=== PATIENT | female | born 1945 | race Caucasian/White ===

== ENCOUNTER 2017-04-30 20:16 | Emergency (ER) | payer MEDICARE, SELFPAY ==
[~2017-04-30] VITALS: Ht 157.5 cm; Wt 63.5 kg
[~2017-04-30 20:16] MED LIST: ACET325 PO; ACET500 PO; AMLO10 PO; ASPI81CH PO; ATEN50 PO; Ativan0.5 MG PO; CALC.25 PO; CLON.1 PO; D3-20002000 UNIT PO; FAMO20 PO; GABA400; HYDR1TAB94 PO; LORA1 PO; METO25 PO; METO50 PO; Miralax17 GM PO; NICO21TP TOP; NITR.4SL SL; OXYC10ER PO; PREG25 PO; PREG50 PO; PROC10 PO; SODBIC650 PO; Sodium Bicarbo325 MG; TIZANIDINE HCL2 MG PO; ZOLP5 PO; [UNRECOGNIZED DRUG - REMARK]
[2017-04-30 21:03] LABS: BASOPHILS ABSOLUTE AUTO 0.01 K/mm3 (0.00-0.23); BASOPHILS PERCENT AUTO 0 % (0-2); EOSINOPHILS ABSOLUTE AUTO 0.14 K/mm3 (0.00-0.68); EOSINOPHILS PERCENT AUTO 2 % (0-6); Hematocrit 41.9 % (33.0-51.0); Hemoglobin 13.7 g/dL (11.5-16.0); IMMATURE GRAN ABSOLUTE AUTO 0.02 K/mm3 (0.00-0.10); IMMATURE GRAN PERCENT AUTO 0 % (0-1); LYMPHOCYTES ABSOLUTE AUTO 1.05 K/mm3 (0.84-5.20); LYMPHOCYTES PERCENT AUTO 15 % (21-46); MONOCYTES ABSOLUTE AUTO 0.44 K/mm3 (0.16-1.47); MONOCYTES PERCENT AUTO 6 % (4-13); Mean Corpuscular HGB 28.9 pg (26.0-34.0); Mean Corpuscular HGB Conc 32.7 g/dL (31.5-36.5); Mean Corpuscular Volume 88 fL (80-100); Mean Platelet Volume 9.9 fL (9.1-12.4); NEUTROPHILS ABSOLUTE AUTO 5.55 K/mm3 (1.96-9.15); NEUTROPHILS PERCENT AUTO 77 % (41-73); Platelet Count 180 K/mm3 (150-400); RDW Coefficient Variation 14.2 % (11.7-14.2); Red Blood Cell Count 4.74 M/mm3 (3.80-5.20); White Blood Cell Count 7.21 K/mm3 (4.00-11.30)
[2017-04-30 21:18] LABS: Albumin, Blood 3.4 g/dL (3.4-5.0); Albumin/Globulin Ratio 0.7 (0.8-1.8); Bilirubin, Total 0.4 mg/dL (0.1-1.0); Bun/Creatinine Ratio 15.5 (12.0-20.0); Calcium, Blood 9.2 mg/dL (8.5-10.1); Creatinine, Blood 1.81 mg/dL (0.40-1.00); Globulin, Blood 4.9 g/dL (2.2-4.0); Potassium, Blood 4.2 mmol/L (3.5-5.5); Total Protein, Blood 8.3 g/dL (6.4-8.2)
[2017-05-01 00:27] LABS: Source, Urine Urostomy Bag
[2017-05-01 00:30] LABS: Bilirubin, Urine Neg (Neg); Blood, Urine 3+ (Neg); Glucose Qualitative, Urine Neg (Neg); Ketones, Urine Neg (Neg); Leukocyte Esterase, Urine 3+ (Neg); Nitrite, Urine Pos (Neg); Protein, Urine 2+ (Neg); Specific Gravity, Urine 1.015 (1.003-1.022); Urobilinogen, Urine NORM (Normal)
[2017-05-01 00:36] LABS: Appearance, Urine Hazy (Clear); Color, Urine Yellow (P-Yellow)
[2017-05-01 00:37] LABS: Bacteria Many /hpf; Red Blood Cells, Urine 0-2 /hpf (0-2); Squamous Epithelial Cells Rare /hpf (Few)
== END 2017-05-01 03:51 | disposition short-term general hospital (02) ==
LOC: ER 20:16
PROVIDERS: Emergency Medicine
DX: N13.30 Unspecified hydronephrosis (principal); Z85.41 Personal history of malignant neoplasm of cervix uteri; Z88.8 Allergy status to other drugs, medicaments and biological substances; Z79.899 Other long term (current) drug therapy; Z79.82 Long term (current) use of aspirin; I10 Essential (primary) hypertension; F17.200 Nicotine dependence, unspecified, uncomplicated
CPT/HCPCS: 36415; 71046; 74150; 80053; 81001; 83605; 83690; 85025; 87040; 87077; 87086; 87186; 96374; 96375; 96376; 99285; J0696; J1170; J2405; J7030

== ENCOUNTER → 2017-05-10 | Outpatient (CLI) | payer MEDICARE ==
[2017-05-10 20:01] LABS: BASOPHILS ABSOLUTE AUTO 0.03 K/mm3 (0.00-0.23); BASOPHILS PERCENT AUTO 0 % (0-2); EOSINOPHILS ABSOLUTE AUTO 0.08 K/mm3 (0.00-0.68); EOSINOPHILS PERCENT AUTO 1 % (0-6); Hematocrit 44.2 % (33.0-51.0); Hemoglobin 13.6 g/dL (11.5-16.0); IMMATURE GRAN ABSOLUTE AUTO 0.03 K/mm3 (0.00-0.10); IMMATURE GRAN PERCENT AUTO 0 % (0-1); LYMPHOCYTES ABSOLUTE AUTO 0.82 K/mm3 (0.84-5.20); LYMPHOCYTES PERCENT AUTO 11 % (21-46); MONOCYTES ABSOLUTE AUTO 0.41 K/mm3 (0.16-1.47); MONOCYTES PERCENT AUTO 6 % (4-13); Mean Corpuscular HGB 27.8 pg (26.0-34.0); Mean Corpuscular HGB Conc 30.8 g/dL (31.5-36.5); Mean Corpuscular Volume 90 fL (80-100); Mean Platelet Volume 10.4 fL (9.1-12.4); NEUTROPHILS ABSOLUTE AUTO 5.81 K/mm3 (1.96-9.15); NEUTROPHILS PERCENT AUTO 81 % (41-73); Platelet Count 185 K/mm3 (150-400); RDW Coefficient Variation 14.1 % (11.7-14.2); RDW Standard Deviation 46.4 fL (35.1-46.3); White Blood Cell Count 7.18 K/mm3 (4.00-11.30)
[2017-05-10 20:35] LABS: Alanine Aminotransfer (ALT/SGP 17 U/L (12-78); Albumin, Blood 3.5 g/dL (3.4-5.0); Albumin/Globulin Ratio 0.7 (0.8-1.8); Alk Phos 90 U/L (50-136); Anion Gap 10 mmol/L (6-16); Aspartate Aminotrans (AST/SGOT 14 U/L (12-37); Bilirubin, Total 0.9 mg/dL (0.1-1.0); Blood Urea Nitrogen 29 mg/dL (8-24); Bun/Creatinine Ratio 13.1 (12.0-20.0); CO2, Blood 25 mmol/L (21-32); Calcium, Blood 9.3 mg/dL (8.5-10.1); Chloride, Blood 102 mmol/L (98-108); Creatinine, Blood 2.21 mg/dL (0.40-1.00); Globulin, Blood 4.7 g/dL (2.2-4.0); Glomerular Filtration Rate 23 (60-); Glucose, Blood 109 mg/dL (70-99); Phosphorus, Blood 3.4 mg/dL (2.5-4.9); Potassium, Blood 4.5 mmol/L (3.5-5.5); Sodium, Blood 137 mmol/L (136-145); Total Protein, Blood 8.2 g/dL (6.4-8.2)
== END ==
LOC: LAB 15:03
PROVIDERS: Family Medicine
DX: N18.3 Chronic kidney disease, stage 3 (moderate) (principal); D63.1 Anemia in chronic kidney disease
CPT/HCPCS: 36415; 80053; 84100; 85025

== ENCOUNTER → 2017-06-01 | Outpatient (CLI) | payer MEDICARE, SELFPAY ==
[2017-06-01 15:07] LABS: Albumin, Blood 3.3 g/dL (3.4-5.0); Anion Gap 10 mmol/L (6-16); Blood Urea Nitrogen 20 mg/dL (8-24); Bun/Creatinine Ratio 11.2 (12.0-20.0); CO2, Blood 25 mmol/L (21-32); Calcium, Blood 8.9 mg/dL (8.5-10.1); Chloride, Blood 100 mmol/L (98-108); Creatinine, Blood 1.79 mg/dL (0.40-1.00); Glomerular Filtration Rate 30 (60-); Glucose, Blood 112 mg/dL (70-99); Phosphorus, Blood 3.6 mg/dL (2.5-4.9); Potassium, Blood 4.1 mmol/L (3.5-5.5); Sodium, Blood 135 mmol/L (136-145); Uric Acid, Blood 6.3 mg/dL (2.6-6.0)
== END | disposition home or self-care (01) ==
LOC: LAB HH 11:45
PROVIDERS: Family Medicine
DX: E11.22 Type 2 diabetes mellitus with diabetic chronic kidney disease (principal); N18.3 Chronic kidney disease, stage 3 (moderate); D63.1 Anemia in chronic kidney disease
CPT/HCPCS: 80069; 83036; 84550; 85018

== ENCOUNTER → 2017-09-27 | Outpatient (CLI) | payer MEDICARE, SELFPAY ==
[2017-09-27 23:55] LABS: Stool Occult Bld Immuno 1 Negative (NEGATIVE)
== END ==
LOC: LAB SHORT 13:50 → OLS 13:50 → LAB FUT 09-16 16:10
PROVIDERS: Family Medicine
DX: E11.22 Type 2 diabetes mellitus with diabetic chronic kidney disease (principal); I12.9 Hypertensive chronic kidney disease with stage 1 through stage 4 chronic kidney disease, or unspecified chronic kidney disease; N18.9 Chronic kidney disease, unspecified; R63.4 Abnormal weight loss
CPT/HCPCS: 82274

== ENCOUNTER → 2017-10-24 | Outpatient (CLI) | payer MEDICARE, SELFPAY | END | disposition home or self-care (01) | LOC: OLS 16:21 → LAB SHORT 16:21 | PROVIDERS: Nurse Practitioner Women's Health | DX: Z12.4 Encounter for screening for malignant neoplasm of cervix (principal); Z85.41 Personal history of malignant neoplasm of cervix uteri | CPT/HCPCS: 87624; G0123 ==

== ENCOUNTER → 2019-01-12 | Outpatient (CLI) | payer MEDICARE ==
[2019-01-15 13:14] LABS: U Amphetamine Screen Not Detected; U Barbituate Screen Not Detected; U Benzodiazapine Screen Not Detected; U Buprenorphine Screen Not Detected; U Cannabinoids Screen DETECTED; U Cocaine Screen Not Detected; U Methadone Screen Not Detected; U Methamphetamine Screen Not Detected; U Opiates Screen Not Detected; U Oxycodone Screen DETECTED; U Phencyclidine Screen Not Detected; U Propoxyphene Screen Not Detected
== END | disposition home or self-care (01) ==
LOC: LAB 16:15 → LAB SHORT 16:15
PROVIDERS: Family Medicine
DX: Z51.81 Encounter for therapeutic drug level monitoring (principal); Z79.891 Long term (current) use of opiate analgesic

== ENCOUNTER → 2019-04-24 | Outpatient (CLI) | payer MEDICARE ==
[2019-05-01 08:08] LABS: DOPAMINE, URINE 71 ug/L (Undefined); METANEPHRINE, UR 120 ug/L (Undefined)
== END | disposition home or self-care (01) ==
LOC: LAB SHORT 12:02 → LAB 12:02 → LAB FUT 01-13 13:15
PROVIDERS: Family Medicine
DX: R23.2 Flushing (principal)
CPT/HCPCS: 81050; 82384; 83835

== ENCOUNTER → 2019-05-01 | Outpatient (CLI) | payer MEDICARE ==
[2019-05-01 18:31] LABS: U Amphetamine Screen Not Detected; U Barbituate Screen Not Detected; U Benzodiazapine Screen Not Detected; U Buprenorphine Screen Not Detected; U Cannabinoids Screen Not Detected; U Cocaine Screen Not Detected; U Methadone Screen Not Detected; U Methamphetamine Screen Not Detected; U Opiates Screen Not Detected; U Oxycodone Screen DETECTED; U Phencyclidine Screen Not Detected; U Propoxyphene Screen Not Detected
== END | disposition home or self-care (01) ==
LOC: LAB SHORT 14:40 → LAB 14:40
PROVIDERS: Family Medicine
DX: Z51.81 Encounter for therapeutic drug level monitoring (principal); Z79.891 Long term (current) use of opiate analgesic

== ENCOUNTER → 2020-03-14 | Outpatient (CLI) | payer MEDICARE ==
[2020-03-14 18:20] LABS: U Opiates Screen DETECTED; U Oxycodone Screen DETECTED
[2020-03-14 18:21] LABS: U Amphetamine Screen Not Detected; U Barbituate Screen Not Detected; U Benzodiazapine Screen Not Detected; U Buprenorphine Screen Not Detected; U Cannabinoids Screen Not Detected; U Cocaine Screen Not Detected; U Methadone Screen Not Detected; U Methamphetamine Screen Not Detected; U Phencyclidine Screen Not Detected; U Propoxyphene Screen Not Detected
== END ==
LOC: LAB 15:42 → LAB SHORT 15:42
PROVIDERS: Family Medicine
DX: Z51.81 Encounter for therapeutic drug level monitoring (principal); Z79.899 Other long term (current) drug therapy

== ENCOUNTER 2020-07-04 09:14 | Emergency (ER) | payer MEDICARE ==
[~2020-07-04] VITALS: Ht 152.4 cm; Wt 63.5 kg
[2020-07-04] MEDS ORDERED: OMEP20ER PO (09:53)
[2020-07-04] MEDS ORDERED: Ventolin/Prove6.7 GM INH (09:53)
[2020-07-04] MEDS ORDERED: ESTRADIOL42.5 GM VAG (09:53)
[2020-07-04] MEDS ORDERED: LOSARTAN POTASS25 M2 PO (09:54)
[2020-07-04] MEDS ORDERED: GABA400 PO (09:55)
[2020-07-04] MEDS ORDERED: DICLOFENAC SOD100 G1 TOP (09:55)
[2020-07-04 10:41] LABS: BASOPHILS ABSOLUTE AUTO 0.04 K/mm3 (0.00-0.23); BASOPHILS PERCENT AUTO 1 % (0-2); EOSINOPHILS ABSOLUTE AUTO 0.37 K/mm3 (0.00-0.68); EOSINOPHILS PERCENT AUTO 5 % (0-6); Hematocrit 43.8 % (33.0-51.0); Hemoglobin 13.8 g/dL (11.5-16.0); IMMATURE GRAN ABSOLUTE AUTO 0.06 K/mm3 (0.00-0.10); IMMATURE GRAN PERCENT AUTO 1 % (0-1); LYMPHOCYTES PERCENT AUTO 11 % (21-46); MONOCYTES ABSOLUTE AUTO 0.62 K/mm3 (0.16-1.47); MONOCYTES PERCENT AUTO 8 % (4-13); Mean Corpuscular HGB 28.5 pg (26.0-34.0); Mean Corpuscular HGB Conc 31.5 g/dL (31.5-36.5); Mean Corpuscular Volume 91 fL (80-100); Mean Platelet Volume 10.1 fL (9.1-12.4); NEUTROPHILS ABSOLUTE AUTO 6.26 K/mm3 (1.96-9.15); NEUTROPHILS PERCENT AUTO 76 % (41-73); Platelet Count 185 K/mm3 (150-400); RDW Coefficient Variation 14.6 % (11.7-14.2); RDW Standard Deviation 48.6 fL (35.1-46.3); Red Blood Cell Count 4.84 M/mm3 (3.80-5.20); White Blood Cell Count 8.25 K/mm3 (4.00-11.30)
[2020-07-04 10:55] LABS: Alanine Aminotransfer (ALT/SGP 16 U/L (12-78); Albumin/Globulin Ratio 0.7 (0.8-1.8); Alk Phos 92 U/L (50-136); Anion Gap 9 mmol/L (6-16); Aspartate Aminotrans (AST/SGOT 14 U/L (12-37); Bilirubin, Total 0.9 mg/dL (0.1-1.0); Blood Urea Nitrogen 24 mg/dL (8-24); Bun/Creatinine Ratio 14.8 (12.0-20.0); CO2, Blood 21 mmol/L (21-32); Calcium, Blood 8.9 mg/dL (8.5-10.1); Chloride, Blood 110 mmol/L (98-108); Creatinine, Blood 1.62 mg/dL (0.40-1.00); Globulin, Blood 4.4 g/dL (2.2-4.0); Glomerular Filtration Rate 33 (60-); Glucose, Blood 136 mg/dL (70-99); Potassium, Blood 4.4 mmol/L (3.5-5.5); Sodium, Blood 140 mmol/L (136-145); Total Protein, Blood 7.4 g/dL (6.4-8.2); Troponin I <0.015 ng/mL (0.000-0.040)
[2020-07-04] MEDS ORDERED: LEVFLO500 PO (12:04)
[2020-08-12] MEDS ORDERED: OXYC10TA19 PO (12:39)
[2020-08-12] MEDS ORDERED: BENZ100A PO (12:39)
[2020-08-12] MEDS ORDERED: SENN187 PO (12:41)
[2020-08-12] MEDS ORDERED: PRED20 PO (12:41)
[2020-08-12] MEDS ORDERED: VITAMIN D5000 UNIT PO (12:42)
== END 2020-07-04 12:10 | disposition home or self-care (01) ==
LOC: ER 09:14
PROVIDERS: Emergency Medicine
DX: J18.9 Pneumonia, unspecified organism (principal); K21.9 Gastro-esophageal reflux disease without esophagitis; I10 Essential (primary) hypertension; F17.200 Nicotine dependence, unspecified, uncomplicated; Z85.41 Personal history of malignant neoplasm of cervix uteri; Z85.118 Personal history of other malignant neoplasm of bronchus and lung; Z79.899 Other long term (current) drug therapy; Z91.09 Other allergy status, other than to drugs and biological substances
CPT/HCPCS: 36415; 71045; 71250; 80053; 83880; 84484; 85025; 93005; 93010; 99284-25; A9270

== ENCOUNTER 2020-09-08 19:51 | Inpatient (IN) | payer MEDICARE ==
[~2020-09-08] VITALS: Ht 152.4 cm; Wt 62.1 kg
[~2020-09-08 19:51] MED LIST changes: +BENZ100A PO; +DICLOFENAC SOD100 G1 TOP; +ESTRADIOL42.5 GM VAG; +GABA400 PO; +LEVFLO500 PO; +LOSARTAN POTASS25 M2 PO; +OMEP20ER PO; +OXYC10TA19 PO; +PRED20 PO; +SENN187 PO; +VITAMIN D5000 UNIT PO; +Ventolin/Prove6.7 GM INH
[2020-09-08 21:22] LABS: BASOPHILS ABSOLUTE AUTO 0.02 K/mm3 (0.00-0.23); BASOPHILS PERCENT AUTO 1 % (0-2); EOSINOPHILS ABSOLUTE AUTO 0.03 K/mm3 (0.00-0.68); EOSINOPHILS PERCENT AUTO 1 % (0-6); Hematocrit 35.9 % (33.0-51.0); Hemoglobin 11.1 g/dL (11.5-16.0); IMMATURE GRAN ABSOLUTE AUTO 0.05 K/mm3 (0.00-0.10); IMMATURE GRAN PERCENT AUTO 1 % (0-1); LYMPHOCYTES ABSOLUTE AUTO 0.54 K/mm3 (0.84-5.20); LYMPHOCYTES PERCENT AUTO 13 % (21-46); MONOCYTES ABSOLUTE AUTO 0.62 K/mm3 (0.16-1.47); MONOCYTES PERCENT AUTO 15 % (4-13); Mean Corpuscular HGB 27.1 pg (26.0-34.0); Mean Corpuscular HGB Conc 30.9 g/dL (31.5-36.5); Mean Corpuscular Volume 88 fL (80-100); Mean Platelet Volume 10.4 fL (9.1-12.4); NEUTROPHILS PERCENT AUTO 70 % (41-73); Platelet Count 162 K/mm3 (150-400); RDW Coefficient Variation 15.2 % (11.7-14.2); RDW Standard Deviation 48.7 fL (35.1-46.3); White Blood Cell Count 4.16 K/mm3 (4.00-11.30)
[2020-09-08 21:48] LABS: Alanine Aminotransfer (ALT/SGP 28 U/L (12-78); Albumin, Blood 2.5 g/dL (3.4-5.0); Albumin/Globulin Ratio 0.5 (0.8-1.8); Alk Phos 82 U/L (50-136); Anion Gap 7 mmol/L (6-16); Aspartate Aminotrans (AST/SGOT 23 U/L (12-37); Bilirubin, Total 0.5 mg/dL (0.1-1.0); Blood Urea Nitrogen 26 mg/dL (8-24); Bun/Creatinine Ratio 12.4 (12.0-20.0); CO2, Blood 26 mmol/L (21-32); Chloride, Blood 103 mmol/L (98-108); Creatinine, Blood 2.09 mg/dL (0.40-1.00); Globulin, Blood 5.1 g/dL (2.2-4.0); Glomerular Filtration Rate 25 (60-); Glucose, Blood 112 mg/dL (70-99); Potassium, Blood 4.6 mmol/L (3.5-5.5); Sodium, Blood 136 mmol/L (136-145); Total Protein, Blood 7.6 g/dL (6.4-8.2); Troponin I <0.015 ng/mL (0.000-0.040)
--- NOTE | 2020-09-09 00:58 | NUR ---
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 PT uses 3 l nc baseline & has CXR at primary care. REportedly needed 5 l NC in ER. 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 Await admission DR Self admitting. Full code status per medical record.
[2020-09-09 02:18] LABS: Source, Urine Clean Catch
[2020-09-09 02:20] LABS: Bilirubin, Urine Neg (Neg); Blood, Urine Neg (Neg); Glucose Qualitative, Urine Neg (Neg); Ketones, Urine 1+ (Neg); Leukocyte Esterase, Urine Neg (Neg); Nitrite, Urine Neg (Neg); Protein, Urine 2+ (Neg); Specific Gravity, Urine 1.015 (1.003-1.022); Urobilinogen, Urine NORM (Normal)
[2020-09-09 02:21] LABS: Appearance, Urine Clear (Clear); Color, Urine Yellow (P-Yellow)
[2020-09-09 02:26] LABS: Bacteria Few /hpf; Red Blood Cells, Urine 0-2 /hpf (0-2); Squamous Epithelial Cells Few /hpf (Few)
--- NOTE | 2020-09-09 03:27 | NUR ---
75 year old Female with recent 3 day hospital stay with thoracentesis for large pleural effusion x 2 per PT report started on chemo after thoracentesis 2 weeks ago. HAd cervical cancer with mets previously had chemo & radiation 2 years ago to treat. Alert, PT on 4 l oxygen for SOB, was hypoxic in ER. Has poor renal function after cancer damaged kidney, creatinine greater than 2. HAs VQ scan orderd. Called DR Lundberg about NPO status gen diet rx as tolerated. PT with recent 15 lb wt loss poor appetite. IV lasix 40 mg given. On tele monitor SR HR 90. Has had covid vaccine x 2 fully immunized. HAs good support of DTR & Son in law who live next door. MAVIS status purple band applied.
[2020-09-09 05:34] LABS: BASOPHILS ABSOLUTE AUTO 0.02 K/mm3 (0.00-0.23); BASOPHILS PERCENT AUTO 1 % (0-2); EOSINOPHILS ABSOLUTE AUTO 0.04 K/mm3 (0.00-0.68); EOSINOPHILS PERCENT AUTO 1 % (0-6); Hematocrit 31.7 % (33.0-51.0); IMMATURE GRAN ABSOLUTE AUTO 0.03 K/mm3 (0.00-0.10); IMMATURE GRAN PERCENT AUTO 1 % (0-1); LYMPHOCYTES ABSOLUTE AUTO 0.71 K/mm3 (0.84-5.20); LYMPHOCYTES PERCENT AUTO 17 % (21-46); MONOCYTES ABSOLUTE AUTO 0.68 K/mm3 (0.16-1.47); MONOCYTES PERCENT AUTO 17 % (4-13); Mean Corpuscular HGB 27.5 pg (26.0-34.0); Mean Corpuscular HGB Conc 31.5 g/dL (31.5-36.5); Mean Corpuscular Volume 87 fL (80-100); Mean Platelet Volume 10.5 fL (9.1-12.4); NEUTROPHILS PERCENT AUTO 64 % (41-73); Platelet Count 145 K/mm3 (150-400); RDW Coefficient Variation 15.2 % (11.7-14.2); RDW Standard Deviation 48.4 fL (35.1-46.3); Red Blood Cell Count 3.63 M/mm3 (3.80-5.20); White Blood Cell Count 4.08 K/mm3 (4.00-11.30)
[2020-09-09 05:57] LABS: Albumin, Blood 2.1 g/dL (3.4-5.0); Albumin/Globulin Ratio 0.5 (0.8-1.8); Bilirubin, Total 0.6 mg/dL (0.1-1.0); Bun/Creatinine Ratio 12.5 (12.0-20.0); Calcium, Blood 8.4 mg/dL (8.5-10.1); Creatinine, Blood 1.92 mg/dL (0.40-1.00); Globulin, Blood 4.5 g/dL (2.2-4.0); Potassium, Blood 4.2 mmol/L (3.5-5.5); Total Protein, Blood 6.6 g/dL (6.4-8.2)
--- NOTE | 2020-09-09 13:32 | NUR ---
LOVENOX FOR PE V.O. FROM DR. DAVIS FOR LOVENOX 1MG/KG SUBCUTANEOUS BID. EMAR UPDATED.
--- NOTE | 2020-09-09 13:56 | NUR ---
PARAMETERS FOR LOSARTAN V.O. FROM DR. DAVIS TO HOLD LOSARTAN IF SBP LESS THAN 105. EMAR UPDATED.
--- NOTE | 2020-09-09 16:46 | NUR ---
Shift Summary A/Ox4, pleasant and cooperative. Up independently. Sats 89% on 3L, increased to 4L and sating above 90%. Breathing E/U. Medicated for pain per EMAR with good effect. Lung perfusion scan completed. Patient reports last chemo 08/25/20. Denies nausea, vomiting, diarrhea. Updated daughter Paty @ [phone]. WCTM.
--- NOTE | 2020-09-09 18:25 | NUR ---
Spiritual care note: Pt and I have a good rapport from her previous hospitalization last month. She tells me she is releived now that she has begun recieving treatment for pulmunary emboli. She reports hope for more time and states "the chemo is working well." She feels well-loved and supported by her family and denied fears/concerns. She responded well to theraputic listening and encouragement. I will remain available.
[2020-09-10 05:11] LABS: BASOPHILS ABSOLUTE AUTO 0.02 K/mm3 (0.00-0.23); BASOPHILS PERCENT AUTO 1 % (0-2); EOSINOPHILS ABSOLUTE AUTO 0.05 K/mm3 (0.00-0.68); EOSINOPHILS PERCENT AUTO 1 % (0-6); Hematocrit 30.9 % (33.0-51.0); Hemoglobin 9.4 g/dL (11.5-16.0); IMMATURE GRAN ABSOLUTE AUTO 0.04 K/mm3 (0.00-0.10); IMMATURE GRAN PERCENT AUTO 1 % (0-1); LYMPHOCYTES ABSOLUTE AUTO 0.77 K/mm3 (0.84-5.20); LYMPHOCYTES PERCENT AUTO 22 % (21-46); MONOCYTES ABSOLUTE AUTO 0.67 K/mm3 (0.16-1.47); MONOCYTES PERCENT AUTO 19 % (4-13); Mean Corpuscular HGB 26.9 pg (26.0-34.0); Mean Corpuscular HGB Conc 30.4 g/dL (31.5-36.5); Mean Corpuscular Volume 89 fL (80-100); Mean Platelet Volume 10.6 fL (9.1-12.4); NEUTROPHILS ABSOLUTE AUTO 1.98 K/mm3 (1.96-9.15); NEUTROPHILS PERCENT AUTO 56 % (41-73); Platelet Count 154 K/mm3 (150-400); RDW Coefficient Variation 15.3 % (11.7-14.2); RDW Standard Deviation 48.9 fL (35.1-46.3); Red Blood Cell Count 3.49 M/mm3 (3.80-5.20); White Blood Cell Count 3.53 K/mm3 (4.00-11.30)
[2020-09-10 05:22] LABS: Albumin, Blood 1.9 g/dL (3.4-5.0); Albumin/Globulin Ratio 0.5 (0.8-1.8); Bilirubin, Total 0.3 mg/dL (0.1-1.0); Bun/Creatinine Ratio 13.7 (12.0-20.0); Calcium, Blood 8.2 mg/dL (8.5-10.1); Creatinine, Blood 1.82 mg/dL (0.40-1.00); Globulin, Blood 4.2 g/dL (2.2-4.0); Potassium, Blood 4.5 mmol/L (3.5-5.5); Total Protein, Blood 6.1 g/dL (6.4-8.2)
--- NOTE | 2020-09-10 06:08 | NUR ---
pleasant calm 75 year old female admitted with dyspnea & hypoxia despite 3 l nc use had VQ scan while showed PEs. PT aware. She is recieving anticoagulant lovenox. Metastatic cervical cancer was belived to be in remission after radiation & chemo when she began developing pleural effusions which were malignant. She was restarted on chemo 2 weeks prior to admission with DR Lakhani & she has had greater than 10 pound wt loss and nausea. requires 4 l nc to keep sats greater than 90%. Appetite poor. Reported she had been constipated but had 4 bowel movements las 24 hours. Supplements or alternatives offered. Up indep in room. PT reports good Family support. DNR status.
--- NOTE | 2020-09-10 14:52 | NUR ---
MAX GUTIERREZA2 STUDENT
--- NOTE | 2020-09-11 04:59 | NUR ---
PT with metastatic cancer of cervix & pleursl effusions & dx of PEs started on eliqius to treat PE's .She is alert & pleasant. Requires 4 l NC oxygen to keep sats greater than 90%. She has insommnia & melatonin not very helpful to relieve. Trazodone 50 mg also not very helpful. Support offered for metastatic cervical cancer.
[2020-09-11 05:23] LABS: BASOPHILS ABSOLUTE AUTO 0.02 K/mm3 (0.00-0.23); BASOPHILS PERCENT AUTO 1 % (0-2); EOSINOPHILS ABSOLUTE AUTO 0.04 K/mm3 (0.00-0.68); EOSINOPHILS PERCENT AUTO 1 % (0-6); Hematocrit 34.3 % (33.0-51.0); Hemoglobin 10.4 g/dL (11.5-16.0); IMMATURE GRAN ABSOLUTE AUTO 0.05 K/mm3 (0.00-0.10); IMMATURE GRAN PERCENT AUTO 1 % (0-1); LYMPHOCYTES ABSOLUTE AUTO 0.83 K/mm3 (0.84-5.20); LYMPHOCYTES PERCENT AUTO 24 % (21-46); MONOCYTES ABSOLUTE AUTO 0.67 K/mm3 (0.16-1.47); MONOCYTES PERCENT AUTO 19 % (4-13); Mean Corpuscular HGB 27.4 pg (26.0-34.0); Mean Corpuscular HGB Conc 30.3 g/dL (31.5-36.5); Mean Corpuscular Volume 90 fL (80-100); Mean Platelet Volume 10.6 fL (9.1-12.4); NEUTROPHILS PERCENT AUTO 54 % (41-73); Platelet Count 156 K/mm3 (150-400); RDW Coefficient Variation 15.2 % (11.7-14.2); RDW Standard Deviation 49.7 fL (35.1-46.3); White Blood Cell Count 3.51 K/mm3 (4.00-11.30)
[2020-09-11 05:49] LABS: Albumin, Blood 2.1 g/dL (3.4-5.0); Albumin/Globulin Ratio 0.5 (0.8-1.8); Bilirubin, Total 0.7 mg/dL (0.1-1.0); Bun/Creatinine Ratio 11.8 (12.0-20.0); Calcium, Blood 8.6 mg/dL (8.5-10.1); Creatinine, Blood 2.29 mg/dL (0.40-1.00); Globulin, Blood 4.6 g/dL (2.2-4.0); Magnesium, Blood 1.6 mg/dL (1.6-2.4); Percent Saturation 18.3 % (15.0-50.0); Potassium, Blood 3.9 mmol/L (3.5-5.5); Total Protein, Blood 6.7 g/dL (6.4-8.2)
--- NOTE | 2020-09-11 17:57 | NUR ---
SHIFT SUMMARY NO ACUTE CHANGES NOTED TO PT THIS SHIFT. PT A&OX4, ABLE TO MAKE NEEDS KNOWN. PLEASANT AND COOPERATIVE TO CARE. INDEPENDENT IN THE ROOM. CALLS APPROPRIATELY FOR ASSISTANCE. NO C/O PAIN OR ANY DISCOMFORT THIS SHIFT. PT DENIES CP OR N&V. PT REPORTS THAT SHE CONTINUES TO HAVE SOB WITH EXERTION, PT ON 4LPM O2 VIA NC, SATS >92%. PT EATING DINNER AT THIS TIME. BED AT LOWEST POSITION. CALL LIGHT WITHIN REACH.
[2020-09-12 05:03] LABS: BASOPHILS ABSOLUTE AUTO 0.03 K/mm3 (0.00-0.23); BASOPHILS PERCENT AUTO 1 % (0-2); EOSINOPHILS ABSOLUTE AUTO 0.04 K/mm3 (0.00-0.68); EOSINOPHILS PERCENT AUTO 1 % (0-6); Hematocrit 31.1 % (33.0-51.0); Hemoglobin 9.5 g/dL (11.5-16.0); IMMATURE GRAN ABSOLUTE AUTO 0.05 K/mm3 (0.00-0.10); IMMATURE GRAN PERCENT AUTO 1 % (0-1); LYMPHOCYTES ABSOLUTE AUTO 0.88 K/mm3 (0.84-5.20); LYMPHOCYTES PERCENT AUTO 23 % (21-46); MONOCYTES PERCENT AUTO 16 % (4-13); Mean Corpuscular HGB 27.1 pg (26.0-34.0); Mean Corpuscular HGB Conc 30.5 g/dL (31.5-36.5); Mean Corpuscular Volume 89 fL (80-100); Mean Platelet Volume 10.5 fL (9.1-12.4); NEUTROPHILS ABSOLUTE AUTO 2.19 K/mm3 (1.96-9.15); NEUTROPHILS PERCENT AUTO 58 % (41-73); Platelet Count 149 K/mm3 (150-400); RDW Coefficient Variation 15.2 % (11.7-14.2); RDW Standard Deviation 48.8 fL (35.1-46.3); Red Blood Cell Count 3.51 M/mm3 (3.80-5.20); White Blood Cell Count 3.79 K/mm3 (4.00-11.30)
--- NOTE | 2020-09-12 05:26 | NUR ---
SPEECH/LANGUAGE THERAPIST SUMMARY NO ACUTE CHANGES THIS SHIFT. PT AAOX4 AND PLEASANT. INDEPENDENT IN ROOM. O2 SATS 92% ON 4L O2. PT STATES BREATHING IS "FINE LONG I HAVE MY OXYGEN ON". MEDICATED FOR CHRONIC PAIN PER EMAR WITH GOOD PAIN RELIEF. PT REQUESTED SENNA BECAUSE SHE "HADN'T HAD A BM TODAY AND I SKIPPED MY EARLIER DOSE TODAY BECAUSE I DIDN'T WANT TO GET DIARRHEA". RECIEVED ORDER FOR SENNA PER DR WALLACE, NO BM THUS FAR. VSS, WILL CONTINUE TO MONITOR.
[2020-09-12 05:29] LABS: Bun/Creatinine Ratio 14.4 (12.0-20.0); Calcium, Blood 8.4 mg/dL (8.5-10.1); Creatinine, Blood 2.16 mg/dL (0.40-1.00); Potassium, Blood 4.4 mmol/L (3.5-5.5)
--- NOTE | 2020-09-12 18:52 | NUR ---
SHIFT SUMMARY PT A&OX4, ABLE TO MAKE NEEDS KNOWN. PLEASANT AND COOPERATIVE TO CARE. PT MEDICATED FOR PAIN PER EMAR. NO C/O CP, SOB, OR N&V THIS SHIFT. PT REPORTED THAT LAST NIGHT SHE EXPERIENCED CHEST PAIN, DR. DAVIS NOTIFIED. TELE THIS SHIFT NSR 90's. PT CONTINUES ON O2 4LPM VIA NC, SATS >92%. PT CALM AND RESTED IN ROOM T/O SHIFT. BED AT LOWEST POSITION. CALL LIGHT WITHIN REACH.
[2020-09-13 04:49] LABS: Hematocrit 34.6 % (33.0-51.0); Hemoglobin 10.5 g/dL (11.5-16.0); Mean Corpuscular HGB 26.9 pg (26.0-34.0); Mean Corpuscular HGB Conc 30.3 g/dL (31.5-36.5); Mean Corpuscular Volume 89 fL (80-100); Mean Platelet Volume 10.8 fL (9.1-12.4); Platelet Count 159 K/mm3 (150-400); RDW Coefficient Variation 15.3 % (11.7-14.2); RDW Standard Deviation 49.1 fL (35.1-46.3); White Blood Cell Count 4.76 K/mm3 (4.00-11.30)
[2020-09-13 05:15] LABS: Bun/Creatinine Ratio 14.9 (12.0-20.0); Calcium, Blood 8.8 mg/dL (8.5-10.1); Creatinine, Blood 1.75 mg/dL (0.40-1.00); Potassium, Blood 4.6 mmol/L (3.5-5.5)
--- NOTE | 2020-09-13 06:38 | NUR ---
TRAFFIC LAW ATTORNEY SUMMARY NO ACUTE CHANGES THIS SHIFT. PT AAOX4 AND INDEPENDENT IN ROOM. MEDICATED FOR PAIN X1 AT BEDTIME. PT REPORTS THAT SHE GOT GOOD SLEEP TONIGHT FOR THE FIRST TIME IN A FEW DAYS. PT HAD CXR AT START OF SHIFT. VSS, WILL CONTINUE TO MONITOR.
--- NOTE | 2020-09-13 17:42 | NUR ---
SHIFT SUMMARY PT ALERT, PT INDEPENDENT IN THE ROOM. PT C/O BACK PAIN- MEDICATED PER EMAR. PT STATED SHE HAS A CHEMO ON TUESDAY. PT IS ON O2 4L; SATS ABOVE 90S. DENIES ANY DISTRESS. BED IS IN THE LOWEST POSITION AND CALL LIGHT WITHIN REACH
[2020-09-14 04:58] LABS: Hematocrit 30.1 % (33.0-51.0); Hemoglobin 9.3 g/dL (11.5-16.0); Mean Corpuscular HGB 27.4 pg (26.0-34.0); Mean Corpuscular HGB Conc 30.9 g/dL (31.5-36.5); Mean Corpuscular Volume 89 fL (80-100); Platelet Count 156 K/mm3 (150-400); RDW Coefficient Variation 15.2 % (11.7-14.2)
--- NOTE | 2020-09-14 05:08 | NUR ---
SHIFT SUMMARY NO ACUTE CHANGES TO REPORT THIS SHIFT. PT HAS RESTED MOST OF THE NIGHT, SHE IS INDEPENDENT TO THE BATHROOM. SHE REPORTS FREQUENT STOOLS THAT ARE NOT LOOSE. SHE REFUSED THE STOOL SOFTNERS THIS SHIFT. TELE IN PLACE, PT IS NSR. VITALS ARE STABLE. O2 IN PLACE 3 BASELINE OR 3.5 L WHEN PT BECOMES SOB WITH EXERTION. PLAN IS FOR POSSIBLE DC HOME TODAY. ASSESSMENT REMAINS UNCHANGED. BED IN LOWEST POSITION, CALL LIGHT WITHIN REACH.
[2020-09-14 05:36] LABS: Albumin, Blood 1.9 g/dL (3.4-5.0); Albumin/Globulin Ratio 0.5 (0.8-1.8); Bilirubin, Total 0.4 mg/dL (0.1-1.0); Bun/Creatinine Ratio 13.3 (12.0-20.0); Calcium, Blood 8.3 mg/dL (8.5-10.1); Creatinine, Blood 1.66 mg/dL (0.40-1.00); Globulin, Blood 4.2 g/dL (2.2-4.0); Potassium, Blood 4.6 mmol/L (3.5-5.5); Total Protein, Blood 6.1 g/dL (6.4-8.2)
--- NOTE | 2020-09-14 17:58 | NUR ---
SHIFT SUMMARY PT ALERT, PT STILL HAVING SOME PRODUCTIVE COUGH AND SOB ON EXERTION. PT MEDICATED FOR PAIN X1 AND MEDICATED FOR COUGH SCHEDULED. PT VERY EMOTIONAL AND CRYING, SHE STATED THAT HER HEALTH IS NOT GETTING ANY BETTER AND SEEMS LIKE ITS GETTING WORSE. ENCOURAGED THE PT TO EXPRESS FEELINGS. BED IS IN THE LOWEST POSITION AND CALL LIGHT WITHIN REACH
--- NOTE | 2020-09-15 04:25 | NUR ---
SHIFT SUMMARY PT HAS RESTED MOST OF THE NIGHT, NO ACUTE CHANGES. PT TEARFUL THIS SHIFT, WHEN ASKED WHY SHE STATES THAT SHE FELT OVERWHELMED. PT ANXIOUS ABOUT DISCHARGE, AND UNSURE IF SHE WILL BE ABLE TO CARE FOR HERSELF AT HOME. SHE STATES SHE HAD HOME HEALTH COME INTO HER HOME ONCE A WEEK PRIOR TO THIS HOSPITLIZATION, BUT STATES THAT SHE FEELS THAT WON'T BE ENOUGH AFTER DISCHARGE. SHE WOULD LIKE MORE CARE AT HOME IS THAT CAN BE ARRANGED. VITALS STABLE. ASSESSMENT OTHERWIST UNCHANGED. BED IN LOWEST POSITION, CALL LIGHT WITHIN REACH.
[2020-09-15 04:35] LABS: BASOPHILS ABSOLUTE AUTO 0.03 K/mm3 (0.00-0.23); BASOPHILS PERCENT AUTO 1 % (0-2); EOSINOPHILS ABSOLUTE AUTO 0.04 K/mm3 (0.00-0.68); EOSINOPHILS PERCENT AUTO 1 % (0-6); Hematocrit 31.2 % (33.0-51.0); Hemoglobin 9.4 g/dL (11.5-16.0); IMMATURE GRAN ABSOLUTE AUTO 0.07 K/mm3 (0.00-0.10); IMMATURE GRAN PERCENT AUTO 2 % (0-1); LYMPHOCYTES ABSOLUTE AUTO 0.94 K/mm3 (0.84-5.20); LYMPHOCYTES PERCENT AUTO 21 % (21-46); MONOCYTES ABSOLUTE AUTO 0.71 K/mm3 (0.16-1.47); MONOCYTES PERCENT AUTO 16 % (4-13); Mean Corpuscular HGB 26.7 pg (26.0-34.0); Mean Corpuscular HGB Conc 30.1 g/dL (31.5-36.5); Mean Corpuscular Volume 89 fL (80-100); Mean Platelet Volume 10.2 fL (9.1-12.4); NEUTROPHILS ABSOLUTE AUTO 2.73 K/mm3 (1.96-9.15); NEUTROPHILS PERCENT AUTO 60 % (41-73); Platelet Count 149 K/mm3 (150-400); RDW Coefficient Variation 15.5 % (11.7-14.2); RDW Standard Deviation 49.9 fL (35.1-46.3); Red Blood Cell Count 3.52 M/mm3 (3.80-5.20); White Blood Cell Count 4.52 K/mm3 (4.00-11.30)
[2020-09-15 04:56] LABS: Albumin, Blood 1.9 g/dL (3.4-5.0); Albumin/Globulin Ratio 0.4 (0.8-1.8); Bilirubin, Total 0.4 mg/dL (0.1-1.0); Bun/Creatinine Ratio 14.6 (12.0-20.0); Calcium, Blood 8.5 mg/dL (8.5-10.1); Creatinine, Blood 1.57 mg/dL (0.40-1.00); Globulin, Blood 4.4 g/dL (2.2-4.0); Potassium, Blood 4.5 mmol/L (3.5-5.5); Total Protein, Blood 6.3 g/dL (6.4-8.2)
--- NOTE | 2020-09-15 17:01 | NUR ---
SHIFT SUMMARY PT IS AOX4 AND PLEASANT. PT MEDICATED FOR PAIN X1 THIS SHIFT. PT DENIES N/V, SOB. PT REMAINS ON BASELINE 3 L 02. PT IS INDEPENDENT IN ROOM AND WORKED WITH PT/OT. PT'S APPETITE IS MODERATE THIS SHIFT. PLAN IS FOR DC TOMORROW. WALKER DELIVERED TO PT'S ROOM TODAY FOR HOME USE. NO PROCEDURES PERFORMED THIS SHIFT. PT DID NOT HAVE VISITORS THIS BLANQUITA. PT IS IN BED, CALL LIGHT IN REACH, LOW POSITION.
[2020-09-16 04:18] LABS: Hematocrit 31.4 % (33.0-51.0); Hemoglobin 9.4 g/dL (11.5-16.0); Mean Corpuscular HGB 26.9 pg (26.0-34.0); Mean Corpuscular HGB Conc 29.9 g/dL (31.5-36.5); Mean Corpuscular Volume 90 fL (80-100); Mean Platelet Volume 10.5 fL (9.1-12.4); Platelet Count 163 K/mm3 (150-400); RDW Coefficient Variation 15.7 % (11.7-14.2); RDW Standard Deviation 51.1 fL (35.1-46.3); Red Blood Cell Count 3.49 M/mm3 (3.80-5.20); White Blood Cell Count 5.15 K/mm3 (4.00-11.30)
[2020-09-16 04:41] LABS: Albumin/Globulin Ratio 0.4 (0.8-1.8); Bilirubin, Total 0.5 mg/dL (0.1-1.0); Bun/Creatinine Ratio 14.8 (12.0-20.0); Calcium, Blood 8.7 mg/dL (8.5-10.1); Creatinine, Blood 1.76 mg/dL (0.40-1.00); Globulin, Blood 4.5 g/dL (2.2-4.0); Potassium, Blood 4.6 mmol/L (3.5-5.5); Total Protein, Blood 6.5 g/dL (6.4-8.2)
--- NOTE | 2020-09-16 04:45 | NUR ---
SHIFT SUMMARY AOX4. VSS. SPO2 >90% ON 3L O2 (BASELINE). DENIES SOB. REPORTED GAS, BLOATING & NAUSEA. MEDICATED c ZOFRAN 1X & SIMETHICONE, PT STATED RELIEF & NO FURTHER DISCOMFORT REPORTED. SLEPT WELL T/O NIGHT. IND IN RM. PLAN TO POSSIBLY DC HOME TODAY. CALL LIGHT IN REACH & PT ABLE TO MAKE NEEDS KNOWN. WILL MONITOR.
[2020-09-16] MEDS ORDERED: ELIQUIS5 MG PO (10:54)
[2020-09-16] MEDS ORDERED: GUAI600T33 PO (10:54)
[2020-09-16] MEDS ORDERED: MIRT15 PO (10:54)
[2020-09-16] MEDS ORDERED: SIME80CH PO (10:55)
--- NOTE | 2020-09-16 12:25 | NUR ---
REVIEW D'C. AWARE HAS MEDS AT PHARMACY AND HAS HARD COPY FOR NARCS. REVIEW MEDS AND WHY TAKING. HAS FOLLOW UP APPOINTMENT WITH ONCOLOGIST TOMORROW AND FOLLOW UP WITH PCP ON 09/19. ANSWER ALL QUESTIONS. PATIENT VERBALIZES UNDERSTANDING OF D'C. WAITING FOR RIDE. WILL BRING DOWN IN W/C ON OXYGEN WITH BELONGINGS.
== END 2020-09-16 12:44 | disposition home health service (06) | DRG 175 ==
LOC: ER 19:51 → MEDS 19:52 → EDBEDREQ 23:56 → MEDS 09-09 01:07
PROVIDERS: Internal Medicine; Physician Assistant; ADMIT Internal Medicine
DX: I26.99 Other pulmonary embolism without acute cor pulmonale (principal); J96.21 Acute and chronic respiratory failure with hypoxia; I13.0 Hypertensive heart and chronic kidney disease with heart failure and stage 1 through stage 4 chronic kidney disease, or unspecified chronic kidney disease; I50.32 Chronic diastolic (congestive) heart failure; E46 Unspecified protein-calorie malnutrition; J91.0 Malignant pleural effusion; N18.4 Chronic kidney disease, stage 4 (severe); Z66 Do not resuscitate; D63.1 Anemia in chronic kidney disease; Z68.26 Body mass index [BMI] 26.0-26.9, adult; C53.9 Malignant neoplasm of cervix uteri, unspecified; J84.10 Pulmonary fibrosis, unspecified; J44.9 Chronic obstructive pulmonary disease, unspecified; K21.9 Gastro-esophageal reflux disease without esophagitis; M54.9 Dorsalgia, unspecified; G89.29 Other chronic pain; M81.0 Age-related osteoporosis without current pathological fracture; Z85.118 Personal history of other malignant neoplasm of bronchus and lung; Z99.81 Dependence on supplemental oxygen; Z98.51 Tubal ligation status; Z98.890 Other specified postprocedural states; Z87.891 Personal history of nicotine dependence
CPT/HCPCS: 36415; 71046; 78580; 80048; 80053; 81001; 82728; 83540; 83550; 83735; 83880; 84484; 85025; 85027; 85651; 93005; 93010; 93306; 93356; 94640; 94760; 96372; 96374; 96375; 97110; 97162; 97165; 97530; 99285-25; A9270; A9540; G0378; J1650; J1940; J2405; J7040

== ENCOUNTER 2020-10-02 08:15 | Inpatient (IN) | payer MEDICARE ==
[~2020-10-02] VITALS: Ht 152.4 cm; Wt 62.1 kg
[~2020-10-02 08:15] MED LIST changes: +ELIQUIS5 MG PO; +GUAI600T33 PO; +MIRT15 PO; +SIME80CH PO
[2020-10-02] MEDS ORDERED: ONDA8 PO (08:40)
[2020-10-02 08:57] LABS: BASOPHILS ABSOLUTE AUTO 0.01 K/mm3 (0.00-0.23); BASOPHILS PERCENT AUTO 0 % (0-2); EOSINOPHILS PERCENT AUTO 0 % (0-6); Hematocrit 35.9 % (33.0-51.0); Hemoglobin 10.7 g/dL (11.5-16.0); IMMATURE GRAN ABSOLUTE AUTO 0.05 K/mm3 (0.00-0.10); IMMATURE GRAN PERCENT AUTO 1 % (0-1); LYMPHOCYTES ABSOLUTE AUTO 0.58 K/mm3 (0.84-5.20); LYMPHOCYTES PERCENT AUTO 8 % (21-46); MONOCYTES ABSOLUTE AUTO 0.15 K/mm3 (0.16-1.47); MONOCYTES PERCENT AUTO 2 % (4-13); Mean Corpuscular HGB 27.3 pg (26.0-34.0); Mean Corpuscular HGB Conc 29.8 g/dL (31.5-36.5); Mean Corpuscular Volume 92 fL (80-100); Mean Platelet Volume 10.4 fL (9.1-12.4); NEUTROPHILS ABSOLUTE AUTO 6.49 K/mm3 (1.96-9.15); NEUTROPHILS PERCENT AUTO 89 % (41-73); Platelet Count 191 K/mm3 (150-400); RDW Coefficient Variation 17.2 % (11.7-14.2); RDW Standard Deviation 57.6 fL (35.1-46.3); Red Blood Cell Count 3.92 M/mm3 (3.80-5.20); White Blood Cell Count 7.28 K/mm3 (4.00-11.30)
[2020-10-02 09:22] LABS: Albumin, Blood 2.8 g/dL (3.4-5.0); Albumin/Globulin Ratio 0.6 (0.8-1.8); Bilirubin, Total 0.6 mg/dL (0.1-1.0); Bun/Creatinine Ratio 14.1 (12.0-20.0); Calcium, Blood 7.8 mg/dL (8.5-10.1); Creatinine, Blood 1.63 mg/dL (0.40-1.00); Globulin, Blood 4.7 g/dL (2.2-4.0); Potassium, Blood 4.4 mmol/L (3.5-5.5); Total Protein, Blood 7.5 g/dL (6.4-8.2)
[2020-10-02 09:27] LABS: Troponin I 0.803 ng/mL (0.000-0.040)
[2020-10-02] MEDS ORDERED: WIXELA 250-501 EAC1 INH (13:06)
[2020-10-02] MEDS ORDERED: BENZ100A PO (13:07)
[2020-10-02] MEDS ORDERED: Vitamin D2000 UNIT PO (13:08)
--- NOTE | 2020-10-02 15:00 | NUR ---
UPDATE; NOTIFIED DR. HARO IN DETERIORATION OF RESPIRATORY STATUS. VERBAL ORDER GIVEN TO START BIPAP. PALLATIVE CARE NOTIFIED FOR EVAL. RT TO ROOM, PLACED ON BIPAP. DAUGHTER TO ROOM. WORK OF BREATHING DECREASED AFTER SEVERAL MINUTES OF WEARING BIPAP. WILL CONTINUE TO MONITOR.
--- NOTE | 2020-10-02 16:26 | NUR ---
pt ready to dischareg review of advance directive POA and polst. pt needs new ID. Family is considering hospice care. pt lives in [place] and family is wanting to move her to [facility] to be with them. Will follow up with hospice services and assist with plan of care.
--- NOTE | 2020-10-02 16:42 | NUR ---
Called to see pt due to worsening dyspnea and nausea. Pt had chemo and symptomatic. on bipapa, having pressure in chest and nausea. pt has not been able to eat and is voiding little. Pt seeing doctor small and dr child for care. Daughter in [id number] that she may not be able to tolerate treatment and may need hospice. Pt very sick permission to bring family in. Consulst palced to doctor small will await pt trenind if she recovers and doctor small reccomendations.
--- NOTE | 2020-10-02 17:21 | NUR ---
SHIFT SUMMARY; ADMIT FROM ER DURING SHIFT. A/A/OX4. TRANSFERS FROM ER GURNEY TO BED WITHOUT DIFFICULTY. LS COARSE AND WHEEZE ON RIGHT. DIMINISHED ON LEFT. AFTER ARRIVAL BECAME SOB WITH WORK OF BREATHING INCREASED. NOTIFIED HOSPITALIST, SEE PREVIOUS NURSING NOTE. BIPAP STARTED BY RT AND REMAINED ON FOR REMAINDER OF SHIFT. PALLATIVE CARE IN TO EVALUATE PT AND SPEAK WITH FAMILY. REPOSITIONS SELF IN BED NEEDED. UP TO BEDSIDE COMMODE WITH ASSISTANCE. WILL CONTINUE TO MONITOR UNTIL REPORTED OFF TO LEXI QUEEN AT 1800.
--- NOTE | 2020-10-02 19:50 | NUR ---
REPORT GIVEN TO LEXI MARTIN.
--- NOTE | 2020-10-03 02:40 | NUR ---
THIS LN TOOK OVER CARE AT 1845 PATIENT IS ALERT AND ORIENTATED, ABLE TO MAKE NEEDS KNOWN, CALLS APPROPRIATELY. PATIENT IS ANXIOUS THIS EVENING, REPEPTITIVE CONCERNS, CURRENTLY ON BEDREST WITH HERNANDEZ CATHETER CARE, HERNANDEZ CARE PROVIDED, C/O OF FIRM ABDOMEN WITHOUT PAIN, C/O OF HEADACHE TYLENOL GIVEN WITH RELIEF, C/O OF NAUSEA WITHOUT EMESIS ZOFRAN GIVEN WITH RELIEF. WILL CONTINUE TO MONITOR THE PATIENT.
[2020-10-03 03:53] LABS: BASOPHILS PERCENT AUTO 0 % (0-2); EOSINOPHILS PERCENT AUTO 0 % (0-6); Hematocrit 32.8 % (33.0-51.0); IMMATURE GRAN ABSOLUTE AUTO 0.02 K/mm3 (0.00-0.10); IMMATURE GRAN PERCENT AUTO 0 % (0-1); LYMPHOCYTES ABSOLUTE AUTO 0.27 K/mm3 (0.84-5.20); LYMPHOCYTES PERCENT AUTO 5 % (21-46); MONOCYTES ABSOLUTE AUTO 0.11 K/mm3 (0.16-1.47); MONOCYTES PERCENT AUTO 2 % (4-13); Mean Corpuscular HGB 27.2 pg (26.0-34.0); Mean Corpuscular HGB Conc 30.5 g/dL (31.5-36.5); Mean Corpuscular Volume 89 fL (80-100); Mean Platelet Volume 10.6 fL (9.1-12.4); NEUTROPHILS ABSOLUTE AUTO 5.38 K/mm3 (1.96-9.15); NEUTROPHILS PERCENT AUTO 93 % (41-73); Platelet Count 154 K/mm3 (150-400); RDW Standard Deviation 55.4 fL (35.1-46.3); Red Blood Cell Count 3.68 M/mm3 (3.80-5.20); White Blood Cell Count 5.78 K/mm3 (4.00-11.30)
[2020-10-03 04:17] LABS: Albumin, Blood 2.8 g/dL (3.4-5.0); Albumin/Globulin Ratio 0.7 (0.8-1.8); Bilirubin, Total 0.5 mg/dL (0.1-1.0); Bun/Creatinine Ratio 16.7 (12.0-20.0); Calcium, Blood 7.9 mg/dL (8.5-10.1); Creatinine, Blood 2.16 mg/dL (0.40-1.00); Globulin, Blood 4.3 g/dL (2.2-4.0); Magnesium, Blood 2.2 mg/dL (1.6-2.4); Phosphorus, Blood 5.2 mg/dL (2.5-4.9); Potassium, Blood 4.5 mmol/L (3.5-5.5); Total Protein, Blood 7.1 g/dL (6.4-8.2)
--- NOTE | 2020-10-03 07:43 | NUR ---
Bedside report received from [facility]. Pt c/o damp linen underneath her mercado tubing. Verified balloon inflation and placement by cleaning tubing with alcohol, deflating balloon (10cc), and reinflating. Urine noted draining clear yellow into the tubing. Megha care was done, and linens changed. Pt has no other c.o discomfort at this time. No distress, no anxiety noted.
--- NOTE | 2020-10-03 10:49 | NUR ---
Pt states that she was told by Dr. Martinez that she only has about 6 months to live. Palliative care RN states that she has been told this in the past on other admissions as well. The pt denies pain, and does not appear to be anxious, agitated or tearful. States that she was hoping to see her great grandchildren born, had hoped that she would live at least 2 more years. STates her cancer diagnosis was 7-8 years ago.
--- NOTE | 2020-10-03 18:17 | NUR ---
couple of attemtps to see pt she was resting well. will continue to try to follow up. Goal is to get her home so she can interact with young grandchildren. Daughter are fatigued and stressed huey her comments of wanting to live longer than six months. Will try to help pt process her journey will get chaplian services.
--- NOTE | 2020-10-03 21:57 | NUR ---
PATIENT IS ALERT AND FORGETFUL AT TIMES, AWARE OF CURRENT PLAN OF CARE, EXPRESSES SHE IS HAVING A HARD TIME WITH THE END OF LIFE DIAGNOSIS OF SIX MONTHS, DAUGHTER IS AT BEDSIDE AND LATER IN EVENING GRANDDAUGHTERS CAME IN TO VISIT WITH HER. SHE IS NOT REMEMBERING MEDICATION TAKEN PREVIOUS IN THE DAY WITH NOTED REPETITIVE CONCERNS AND DISCUSSIONS. WILL CONTINUE TO MONITOR AND PROVIDE COMFORT CARE FOR PATIENT.
--- NOTE | 2020-10-04 06:13 | NUR ---
PATIENT ENJOYED HER TIME WITH HER FAMILY THIS EVENING AND TALKING TO FRIENDS ON THE PHONE, C/O DISCOMFORT IN THE LUQ WRAPPING PRESSURE AROUND LEFT FLANK. PATIENT ASKED TO SLEEP, WILL LET DAY RN KNOW PATIENT WILL GET HER PRILOSEC ONCE SHE AWAKES, ALONG FOR COMFORT AND REST.
--- NOTE | 2020-10-04 14:06 | NUR ---
theraputic talk with patient. She is angry and fearful. we discussed being at home she is hesitant but understandsneed to accept we reviewed where to put the hospital bed and strategies on how to get outside. She does not like her children being stressed. We reviewed acceptance of that she raised a good can careing family and she is just gonna have to take it....she had a good laugh. will follow up with family and will have chaplian see her. She is anxious to get home and feels she will settle better at home. Will updte hospice pt has an exptrodary history of personnal truma in her young life it may effect her dying process.
--- NOTE | 2020-10-04 14:13 | NUR ---
Family requested my presence in the room with them. They asked a few questions about pt's oxygen needs, and ongoing assessment of her vital signs. I explained that the pt care at this time is centered around her comfort. Explained that I did check her vital signs before administering her blood pressure medication this morning, but that continuous oximetry has been completed since the oxygen delivery is based on what the pt feels is most comfortable and desirable for her. Extensive conversation with Paty outside of the room privately at her request. She seemed to be very concerned about her mom's acceptance of the prognosis is less than 3 months to live, and if her mom was going to be fighting the family with her treatment. She also expressed stress from other family members asking if we were "just giving up" and not doing anything more for the pt. Explained that the goal of treatment has shifted at this time after the pt had talked with Dr. Martinez (Paty states that she was also in that conversation) and realized that her prognosis was poor. The goal of treatment at this time is the pt's comfort, not procedures, treatments and medications which would be futile in prolonging her life and would increase her discomfort and enjoyment of the little time the pt might have left. Paty expressed that she understood much better after our conversation and states appreciation. I encouraged Paty to have open, honest coversation with her mom and encourage other family members to do the same so that they could understand one another and make the most of their remaining time together.
--- NOTE | 2020-10-04 16:00 | NUR ---
Pt c/o the bed feeling uncomfortable, and having pain in her ribs. Given pain medication by mouth, and assisted to chair to put egg crate mattress over the bed for comfort. She requested a sponge bath, which she was able to do herself with minimal assistance, including denture care and back rub. Bed linens changed. Pt states she wants to stay in the chair for now. Warm blanket to her shoulders and back. Call light within reach.
--- NOTE | 2020-10-04 18:14 | NUR ---
Good relief of pain with 5 mg roxinol. The pt has been able to self transfer from chair to bed. Appetite fair, and no c/o anxiety or difficulty breathing.
--- NOTE | 2020-10-05 11:00 | NUR ---
Pal Care comfort care visit Attempted assessment and visit earlier this am. Pt was asleep. No nonverbal indicators of pain or distress noted at that time. Staff preparing to transfer pt to medical floor, Rm [id number]. EMR reviewed. RN had requested change of analgesic per pt's request and obtained order for same. Will reeval for s/s management tomorrow. Plan in place per CM for d/c with hospice support early week.
--- NOTE | 2020-10-05 11:01 | NUR ---
Received report from PCU nurse.
--- NOTE | 2020-10-05 12:24 | NUR ---
Pt c/o pain 08/02. She states that she takes oxycodone at home with more relief than she is getting with the roxicodone. Call placed to Dr. Mott. roxanol d/c'd and oxycodone ordered. No other concerns.
--- NOTE | 2020-10-05 12:30 | NUR ---
Received pt from PCU. Alert, oriented. Pt complains of pain increasing. She states that she has oxycodone at home - which works better than the roxanol she is currently getting. Will call MD to notify of pt's request to change pain regimen.
--- NOTE | 2020-10-05 12:33 | NUR ---
PT COMPLAINS ABOUT 8/10 PAIN LEVEL IN RIGHT FLANK AREA. 10MG OXYCODONE GIVEN PT REQUESTS. SHE STATES THAT SHE HAS RELEIF AT 3/10, BUT FREQUENTLY HAS 0/10 PAIN LEVEL AFTER MEDICATION.
--- NOTE | 2020-10-05 14:35 | NUR ---
PT REPORTED 9/10 HIP AND BACK PAIN; MEDICATED PER JUN; PT REPORTED BORBORYGMUS; REGLAN ADMINISTERED PER JUN; PT HAD A SMALL BM, DRANK 240ML WATER, AND VOIDED 150ML VIA CATHETER; TRANSFER ORDERS PLACED; REPORT GIVEN VIA PHONE TO LEXI ESTRELLA AT 1056; PT LEFT UNIT AT 1140; PT DENIES ADDITIONAL CONCERNS AT THIS TIME
--- NOTE | 2020-10-05 14:53 | NUR ---
Pt resting comfortably in bed with eyes closed and soft snoring. No s/s of distress. Will remain available.
--- NOTE | 2020-10-05 19:25 | NUR ---
Shift Summary: Pt alert, oriented, cooperative. Medicated for pain with oxycodone. Zofran given x1 with good effect. Pt up to BSC for bowel movement at end of shift.
--- NOTE | 2020-10-05 21:47 | NUR ---
PT CO CONSTIPATION HAD BM & REPORTS SHE WAS INCONTINENT OF STOOL AFTER HARD PELLETED STOOL .SPOKE WITH DTR NICKY ABOUT PENDING DC ON HOSPICE. SHE HAS BEEN IN TOUCH WITH HOSPICE.
--- NOTE | 2020-10-06 15:09 | NUR ---
Pal Care comfort care visit. Pt asleep and I did not disturb her. Pain control has continued to be an issue. Dr has added third dosing for oxycodone and Roxanol back in for breakthru pain. CM working with hospice agency, pt/family on d/c plan for home as soon as s/s better managed. Will attmept visit again later this afternoon if pt awake.
--- NOTE | 2020-10-06 17:01 | NUR ---
Spiritual care note: Mrs. Menon and I have a good rapport from previous admission. We had a lengthy conversation about hospice and end-of-life. She is fiercely independant and does not want to "burden" her adult children. She states that DR Martinez "Is working on something to give me more quality of life" although his notes do not mention this. She was often tearful and very honest about her fears. We spoke at length about her pedrito, her life, and her ideas of . She has a loving family and friends. Mrs. Menon appears to be emotionally processing quite normally--slipping in and out of denial/acceptance. Gentle direct care counselor was well received. We prayed together for "more time." I will continue to see this pt as schedule permits. It appears the plan is for her to d/c with hospice tomorrow.
--- NOTE | 2020-10-06 18:09 | NUR ---
SUMMARY PT SITTING UP IN BED EATING DINNER, IS ON COMFORT CARE, PT HAS HAD SEVERAL VISITORS IN TODAY, PT MED PER EMAR FOR C/O PAIN, PT UP TO THE BATHROOM WITH 1P ASSIST, PLAN TO DC HOME WITH HOSPICE TOMORROW, NO COMPLAINTS, WILL CONTINUE TO MONITOR
--- NOTE | 2020-10-07 00:27 | NUR ---
very pleasant PT who had NSTEMI acute heart failure with pulmonary fibrosis continues on 9 l high flow oxygen with helpful effect. Her cervical cancer which had been treated with chemo & radiation returned with mets. She is on comfort measures & has scheduled tid oxycodone 10 mg with good control of rt flank & CBP. Up indep in room to bathroom CO constipation & had sennacot & warm prune juice at HS, await response. PT is going home on hospice Tuesday, lives next door to DTR & Son in law & she has other family inb area that are supportive. PT says Sister & Nephew in to visit she had not seen them in 30 years. Support offered & PT expresses support for dc plan home on hospice.
--- NOTE | 2020-10-07 03:48 | NUR ---
PT on comfort care & appears comfortable in scheduled oxycodone 10 mg. PT has mercado cath for metastatic cervical cancer with cloudy yellow urine. Irrigated mercado cath with 30 ml NS with helpful effect. PT had sennacot at HS & drank prune juice to relieve constipation. Denies nausea. Continues on 9 l high flow oxygen.
[2020-10-07] MEDS ORDERED: ACET325 PO (09:45)
[2020-10-07] MEDS ORDERED: ATOR40TA PO (09:45)
[2020-10-07] MEDS ORDERED: ASPI81CH PO (09:45)
[2020-10-07] MEDS ORDERED: FURO40 PO (09:46)
[2020-10-07] MEDS ORDERED: ATROPINE SULFATE2 M5 SL (09:46)
[2020-10-07] MEDS ORDERED: LORA1 PO (09:47)
[2020-10-07] MEDS ORDERED: METO25ER PO (09:48)
[2020-10-07] MEDS ORDERED: MORP20L PO (09:48)
[2020-10-07] MEDS ORDERED: TRANSDERM-SCOP1 EAC5 TD (09:48)
--- NOTE | 2020-10-07 11:30 | NUR ---
Pal Care Comfort Care visit - Pt sitting up in chair in her own nigtgown, robe and slippers waiting for her family/ride and dc as planned today. [facility] be [facility] to service. She reports much better pain control today than over the weekend and yest am. She is grateful to be going home. I helped her pack up her blanket and misc personal items into personal belongings bag. FAmily arrived while we were talking. RN notified of their arrival. No other needs identified at this time.
--- NOTE | 2020-10-07 12:00 | NUR ---
SUMMARY/DISCHARGE PT DISCHARGED TO HOME WITH HOSPICE, PT'S HERNANDEZ REMOVED AND PT ABLE TO VOID, PT UP IN THE ROOM WITH MIN ASSIST, PT MED PER EMAR FOR PAIN, FAMILY IN TO TRANSPORT HOME, SCRIPT FOR OXY GIVEN TO THE PT, 02 DELIVERED YESTERDAY IN THE ROOM, PT TAKEN OUT SAFELY VIA WHEELCHAIR
== END 2020-10-07 11:52 | disposition hospice, home (50) | DRG 280 ==
LOC: ER 08:15 → PCU 11:12 → MEDS 10-05 11:42
PROVIDERS: Emergency Medicine; Nurse Practitioner Acute Care; ADMIT Family Medicine
PROC: 5A09357 Assistance with Respiratory Ventilation, Less than 24 Consecutive Hours, Continuous Positive Airway Pressure (ICD-10-PCS; principal; 2020-10-02)
DX: I13.0 Hypertensive heart and chronic kidney disease with heart failure and stage 1 through stage 4 chronic kidney disease, or unspecified chronic kidney disease (principal); I50.21 Acute systolic (congestive) heart failure; I21.A1 Myocardial infarction type 2; J96.21 Acute and chronic respiratory failure with hypoxia; C78.02 Secondary malignant neoplasm of left lung; C78.01 Secondary malignant neoplasm of right lung; N17.9 Acute kidney failure, unspecified; N18.4 Chronic kidney disease, stage 4 (severe); N25.81 Secondary hyperparathyroidism of renal origin; Z51.5 Encounter for palliative care; C53.9 Malignant neoplasm of cervix uteri, unspecified; Z66 Do not resuscitate; Z87.891 Personal history of nicotine dependence; Z79.899 Other long term (current) drug therapy; Z87.442 Personal history of urinary calculi; K21.9 Gastro-esophageal reflux disease without esophagitis; G89.29 Other chronic pain; J44.9 Chronic obstructive pulmonary disease, unspecified; Z99.81 Dependence on supplemental oxygen; Z86.711 Personal history of pulmonary embolism; Z98.51 Tubal ligation status; Z98.890 Other specified postprocedural states; I42.9 Cardiomyopathy, unspecified
CPT/HCPCS: 36415; 71045; 76770; 80053; 83735; 83880; 84100; 84484; 85025; 93005; 93010; 94640; 94660; 94760; 94762; 97110; 97116; 97162; 97530; 99285-25; A9270; C8929; J1940; J2405; J2765; J2930